=== PATIENT | male | born 1980 | race Caucasian/White ===

== ENCOUNTER 2016-12-30 08:41 | Outpatient (CLI) | payer BC ==
--- NOTE | 2016-12-30 11:37 | RAD ---
BIPHASIC ESOPHAGRAM: Date: 12/30/16 HISTORY: GERD. FINDINGS: Swallowing was grossly normal. There was unobstructed flow of contrast through the esophagus and int o the stomach. No ulcer, stricture, mass, or diverticulum seen. A 12.0 mm tablet passed promptly fro m the esophagus into the stomach without stasis. No hiatal hernia seen. No GE reflux demonstrated du ring Valsalva maneuver. IMPRESSION: Normal exam. POS: TAWNYA
== END 2016-12-30 08:42 | disposition home or self-care (01) ==
LOC: RAD 08:41
PROVIDERS: ATTEND Specialist
DX: K21.9 Gastro-esophageal reflux disease without esophagitis (principal)
CPT/HCPCS: 74220

== ENCOUNTER 2017-05-05 08:06 | Emergency (ER) | payer BC ==
[2017-05-05] MEDS ORDERED: Iopamidol 370 76% 100 ML VIAL ONE (09:00)
[2017-05-05 09:05] LABS: #Basophils 0.1 thou/uL (0.0-0.2); #Eosinphils 0.1 thou/uL (0.0-0.7); #Lymphocytes 2.5 thou/uL (1.20-3.40); #Monocytes 0.7 thou/uL (0.11-0.59); #Neutrophils 4.4 thou/uL (1.40-6.50); %Basophils 1.4 % (0.0-1.0); %Eosinophils 1.1 % (0.0-10.0); %Lymphocytes 32.2 % (21.0-51.0); %Monocytes 8.5 % (0.0-10.0); %Neutrophils 56.9 % (42.0-75.0); Hemoglobin 15.4 g/dL (14.0-18.0); Mean Corpuscular HGB CONC 33.4 g/dL (32.0-36.0); Mean Corpuscular Hemoglobin 27.8 pg (27.0-31.0); Mean Corpuscular Volume 83.1 fl (80.0-94.0); Mean Platelet Volume 7.7 fL (7.4-10.4); Platelet Count 226 thou/uL (130-400); RBC Distribution Width 11.3 % (11.5-14.5); Red Blood Cell (RBC) Count 5.52 mill/uL (4.70-6.10); White Blood Cell (WBC) Count 7.7 thou/uL (4.8-10.8)
[2017-05-05 09:13] LABS: Anion Gap 14 mmol/L (10-20); BUN (Urea Nitrogen) 13 mg/dL (8.9-20.6); Calc. Creatinine Clearance 0 mL/min (70-130); Calcium 9.7 mg/dL (7.8-10.44); Carbon Dioxide 25 mmol/L (22-29); Chloride 105 mmol/L (98-107); Estimated GFR-MDRD 72; Glucose 109 mg/dL (70-105); Potassium 3.4 mmol/L (3.5-5.1); Sodium 141 mmol/L (136-145)
--- NOTE | 2017-05-05 10:04 | MRI ---
BRAIN MRI WITHOUT CONTRAST: Date: 05/05/17 COMPARISON: None. HISTORY: Vision changes. Prior history of severe headaches. TECHNIQUE: Multiplanar, multisequence MR imaging of the brain obtained without contrast. FINDINGS: The diffusion-weighted imaging demonstrates no evidence for acute infarction. Axial gradient echo imaging demonstrates no evidence for intracranial hemorrhage. There is polypoid mucosal thickening within the maxillary sinus posteriorly on the left. Arterial flow-voids at the axial level of the skull base appear unremarkable on the T2-weighted imagi ng. There are 3-4 subcentimeter foci of increased T2 and FLAIR signal within the subcortical white matter of the frontal lobes, nonspecific. Regional bone marrow signal intensity is within normal limits. No mass effect or ventricular enlargem ent. IMPRESSION: No acute findings. Incidental findings as described above. POS: TAWNYA
--- NOTE | 2017-05-05 11:14 | CT ---
CT ANGIOGRAM OF HEAD: Date: 05/05/17 HISTORY: Vision changes. COMPARISON: None. TECHNIQUE: Noncontrast head CT is performed in the axial plane. CT angiogram of the [place] also perfor med in the axial plane. Sagittal and coronal three-dimensional reformatted images are submitted for i nterpretation. FINDINGS: NONCONTRAST HEAD CT: No parenchymal hemorrhage. No extra-axial hematoma. No midline shift. Basilar cisterns are patent. Br ain volume is age-appropriate. Cortical loza-white matter differentiation is preserved. Ventricles an d sulci are patent and symmetric. Mucus retention cyst/polyp in the left maxillary sinus. Adequate ae ration of the sinuses and mastoid air cells. Calvarium is intact. No pathologic enhancement of the br ain parenchyma. CT ANGIOGRAM: There is symmetric enhancement and luminal diameter of the distal cervical and intracranial internal carotid arteries. ANTERIOR CIRCULATION: There is symmetric enhancement and luminal diameter of A1 and M1 segments. There is symmetric enhance ment and luminal diameter of the proximal A2 segments and proximal MCA branches. POSTERIOR CIRCULATION; Distal cervical and intracranial vertebral arteries are unremarkable. Left and right PICA artery orig ins are unremarkable. Both vertebral arteries supply a diminutive but patent basilar artery. The left [employer] has a origin. The right P1 segment is unremarkable. IMPRESSION: Unremarkable CT angiogram of [place]. No evidence of aneurysm or significant occlusion. POS: TAWNYA
== END 2017-05-05 11:10 | disposition home or self-care (01) ==
LOC: SCSER 08:06
DX: H53.2 Diplopia (principal); K21.9 Gastro-esophageal reflux disease without esophagitis
CPT/HCPCS: 70496; 70551; 80048; 85025

== ENCOUNTER 2018-10-21 22:22 | Emergency (ER) | payer BC ==
[2018-10-21 22:45] LABS: #Basophils 0.1 thou/uL (0.0-0.2); #Eosinphils 0.1 thou/uL (0.0-0.7); #Lymphocytes 3.9 thou/uL (1.20-3.40); #Monocytes 0.8 thou/uL (0.11-0.59); #Neutrophils 3.9 thou/uL (1.40-6.50); %Basophils 1.4 % (0.0-1.0); %Eosinophils 1.4 % (0.0-10.0); %Lymphocytes 43.8 % (21.0-51.0); %Monocytes 9.1 % (0.0-10.0); %Neutrophils 44.3 % (42.0-75.0); Hemoglobin 15.1 g/dL (14.0-18.0); Mean Corpuscular HGB CONC 34.1 g/dL (32.0-36.0); Mean Corpuscular Hemoglobin 28.7 pg (27.0-31.0); Mean Corpuscular Volume 84.2 fL (78.0-98.0); Mean Platelet Volume 6.9 fL (7.4-10.4); Platelet Count 213 thou/uL (130-400); RBC Distribution Width 11.6 % (11.5-14.5); Red Blood Cell (RBC) Count 5.25 mill/uL (4.70-6.10); White Blood Cell (WBC) Count 8.8 thou/uL (4.8-10.8)
[2018-10-21 23:05] LABS: ALT (SGPT) 30 U/L (8-55); AST (SGOT) 18 U/L (5-34); Albumin 4.7 g/dL (3.5-5.0); Alkaline Phosphatase 64 U/L (40-150); Anion Gap 17 mmol/L (10-20); BUN (Urea Nitrogen) 14 mg/dL (8.9-20.6); Bilirubin, Total 0.3 mg/dL (0.2-1.2); Calc. Creatinine Clearance 0 mL/min (70-130); Calcium 9.9 mg/dL (7.8-10.44); Carbon Dioxide 24 mmol/L (22-29); Chloride 103 mmol/L (98-107); Estimated GFR-MDRD 58; Glucose 86 mg/dL (70-105); Lipase 82 U/L (8-78); Potassium 3.4 mmol/L (3.5-5.1); Protein, Total 7.7 g/dL (6.0-8.3); Sodium 141 mmol/L (136-145)
--- NOTE | 2018-10-21 23:26 | RAD ---
RADIOGRAPH CHEST 1 VIEW: DATE: 10/21/2018 HISTORY: 38-year-old male with chest pain FINDINGS: There are no airspace densities, pulmonary edema, pneumothorax, or cardiomegaly. The lateral costophr enic angles are sharp. IMPRESSION: No acute cardiopulmonary findings.
== END 2018-10-21 23:29 | disposition home or self-care (01) ==
LOC: SCSER 22:22
DX: R00.2 Palpitations (principal); K21.9 Gastro-esophageal reflux disease without esophagitis
CPT/HCPCS: 71045; 80053; 83690; 84443; 84484; 85025; 93005